=== PATIENT | male | born 1960 | race Caucasian/White ===

== ENCOUNTER 2023-12-09 20:38 | Emergency (ER) | payer OTHER ==
[~2023-12-09] VITALS: Ht 177.8 cm; Wt 77.0 kg
[2023-12-09 20:53] VITALS: O2SAT 97
[2023-12-09 21:36] LABS: BASOPHILS % 0.9 % (0.0-2.0); EOSINOPHILS % 2.1 % (0.0-5.0); HEMATOCRIT. 37.8 % (42.0-52.0); HEMOGLOBIN. 12.8 g/dL (14.0-18.0); LYMPHOCYTES % 26.3 % (20.0-50.0); MEAN CORPUSCULAR HEMOGLOBIN 31.9 pg (28.0-32.0); MEAN CORPUSCULAR HGB CONC 33.9 g/dL (31.0-37.0); MEAN CORPUSCULAR VOLUME 94.1 fL (80.0-94.0); MONOCYTES % 10.4 % (2.0-8.0); NEUTROPHILS % 60.3 % (40.0-76.0); PLATELET 338 x1000/uL (130-400); RED BLOOD CELL COUNT 4.02 mill/uL (4.7-6.1); RED CELL DISTRIBUTION WIDTH 14.6 % (11.6-14.6); WHITE BLOOD COUNT 8.4 x1000/uL (4.5-11.0)
[2023-12-09 21:38] LABS: CLARITY URINE CLEAR (CLEAR); COLOR URINE YELLOW (YELLOW); GLUCOSE URINE NEGATIVE (NEGATIVE); KETONES URINE NEGATIVE (NEGATIVE); LEUKOCYTE ESTERASE URINE NEGATIVE (NEGATIVE); NITRITE URINE NEGATIVE (NEGATIVE); OCCULT BLOOD URINE 1+ (NEGATIVE); PH URINE 5.5 (4.5-8.0); PROTEIN URINE 3+ (NEGATIVE); SPECIFIC GRAVITY URINE 1.011 (1.005-1.030); UROBILINOGEN URINE 0.2 E.U./dL (0.2-1.0)
[2023-12-09 21:41] LABS: POTASSIUM 3.8 mEq/L (3.5-5.1)
[2023-12-09 21:43] LABS: CALCIUM 8.7 mg/dL (8.7-10.4)
[2023-12-09 21:44] LABS: INR 0.9; PROTHROMBIN TIME 10.2 sec (9.6-11.0)
[2023-12-09 21:47] LABS: CREATININE 3.7 mg/dL (0.6-1.3)
[2023-12-09 21:52] LABS: SQUAMOUS EPITHELIAL CELL URINE RARE /lpf (RARE/1+)
[2023-12-09 21:53] LABS: BACTERIA URINE 1+; WBC URINE NONE SEEN /hpf (0-2)
[2023-12-09 22:13] LABS: ERYTHROCYTE SEDIMENTATION RATE 91 mm/hr (0-20)
[2023-12-09] MEDS ORDERED: CEPH500C2 MT (23:27)
[2023-12-09] MEDS ORDERED: DICL100G58 TP (23:27)
[2023-12-09] MEDS: KETOROLAC 30MG/ML VIAL IM ONE (23:46)
[2023-12-09 23:50] VITALS: BP 131/92; PULSE 98; RESP 16; TEMP 98.3
== END 2023-12-09 23:54 | disposition home or self-care (01) ==
LOC: ER 20:38
DX: S60.511A Abrasion of right hand, initial encounter (principal); M19.041 Primary osteoarthritis, right hand; L03.113 Cellulitis of right upper limb; M10.9 Gout, unspecified; N18.9 Chronic kidney disease, unspecified; W18.39XA Other fall on same level, initial encounter; Y93.89 Activity, other specified; Y92.89 Other specified places as the place of occurrence of the external cause; Y99.8 Other external cause status
CPT/HCPCS: 99285; 80048; 81003; 83605; 83615; 85025; 85610; 85651; 87040; 87086; 36415; 84145; 73130; 93005; 96372; J1885